=== PATIENT | female | born 1980 | race Caucasian/White ===

== ENCOUNTER → 2020-09-03 | Outpatient (CLI) | payer BC ==
[~2020-09-03] MED LIST: DAZIDOX10 MG PO; FLEXERIL 1010 MG/TAB PO; NAFCIL2 GM IV; NORCO 325 MG-7.1 TAB PO; PERCOCET 325 MG1 TA2 PO; PRENATAL VITAMI1 TA5 PO; ULTRAM 50MG TAB50 MG PO
== END ==
LOC: MC.RAD 14:15
DX: Z12.31 Encounter for screening mammogram for malignant neoplasm of breast (principal)

== ENCOUNTER → 2022-02-21 | Outpatient (CLI) | payer OTHER | LOC: MC.RAD 08:15 | DX: Z12.31 Encounter for screening mammogram for malignant neoplasm of breast (principal) ==

== ENCOUNTER → 2024-03-03 | Outpatient (CLI) | payer OTHER | LOC: MC.RAD 09:57 | DX: Z12.31 Encounter for screening mammogram for malignant neoplasm of breast (principal) ==